=== PATIENT | female | born 1960 | race Caucasian/White ===

== ENCOUNTER → 2017-12-30 | Outpatient (REF) | payer OTHER | LOC: M SFHCLERA 12:21 | DX: R30.0 Dysuria (principal) | CPT/HCPCS: 87086 ==

== ENCOUNTER → 2018-10-29 | Outpatient (REF) | payer OTHER ==
[~2018-10-29] MED LIST: CITA20TA6 PO; CLON1TAB8 PO; CRES5TAB PO; LEXA1TAB2 PO; MOBI4TAB PO; MONT10TA2 PO; MOTR200T44 PO; TRIA37.5 PO; TYLE167L PO; VITA-122 PO; ZYRT10CA PO
[2018-10-29 19:22] LABS: APPEARANCE, URINE CLOUDY (CLEAR); BACTERIA, URINE AUTO 1+ (NEGATIVE); BILIRUBIN, URINE AUTO NEGATIVE (NEGATIVE); BLOOD, URINE BLOOD 3+ (NEGATIVE); COLOR, URINE YELLOW (YELLOW); GLUCOSE, URINE (UA) AUTO NEGATIVE (NEGATIVE); KETONE, URINE AUTO NEGATIVE (NEGATIVE); LEUKOCYTE ESTERASE, URINE AUTO 3+ (NEGATIVE); MUCUS, URINE SMALL (NEGATIVE); NITRITE, URINE AUTO NEGATIVE (NEGATIVE); PROTEIN, URINE AUTO NEGATIVE (NEGATIVE); RBC, URINE AUTO 61 /HPF (0-3); SPECIFIC GRAVITY URINE AUTO 1.014 (1.002-1.035); SQUAMOUS EPITHELIAL CELL UR AU 1 /HPF (0-6); UROBILINOGEN, URINE AUTO 0.2 mg/dL (0.0-2.0); WBC, URINE AUTO 176 /HPF (0-3)
== END ==
LOC: M LAB REF 18:05
PROVIDERS: ATTEND Physician Assistant Medical
DX: N39.0 Urinary tract infection, site not specified (principal)

== ENCOUNTER 2019-03-27 07:44 | Emergency (ER) | payer OTHER ==
[~2019-03-27] VITALS: Ht 160 cm; Wt 77.9 kg
[2019-03-27 07:44] VITALS: BP 122/66
[~2019-03-27 07:44] MED LIST changes: +ALL10TAB29; -MONT10TA2 PO; +MONT10TA4 PO
[2019-03-27] MEDS ORDERED: LEVO500T3 PO (07:51)
[2019-03-27] MEDS ORDERED: CLAR10CA3 PO (07:51)
[2019-03-27] MEDS ORDERED: IBUP-1022 PO (07:51)
[2019-03-27] MEDS ORDERED: ONDANSETRON 4 MG ORAL DISINTEGRATING TAB (Q0162 PER 1MG) PO ONE (08:15)
[2019-03-27] MEDS ORDERED: BACTRIM 160MG/800MG DS TAB PO ONE (08:15)
[2019-03-27] MEDS ORDERED: ONDA4TAB6 PO (08:18)
[2019-03-27] MEDS ORDERED: BACT800T5 PO (08:18)
[2019-03-27] MEDS ORDERED: NEOSPORIN TOP OINT 15GM TOP ONE (08:30)
== END 2019-03-27 08:27 | disposition home or self-care (01) ==
LOC: EEVIPCON 07:44 → M ED 07:44
DX: L03.011 Cellulitis of right finger (principal); M48.00 Spinal stenosis, site unspecified; M19.90 Unspecified osteoarthritis, unspecified site; Z79.2 Long term (current) use of antibiotics; Z79.899 Other long term (current) drug therapy; Z88.0 Allergy status to penicillin; Z88.6 Allergy status to analgesic agent; Z91.013 Allergy to seafood
CPT/HCPCS: 10060; 87070; 87077; 87186; 87205; 99282; Q0162

== ENCOUNTER → 2020-03-07 | Outpatient (CLI) | payer SELFPAY ==
[~2020-03-07] MED LIST changes: -ALL10TAB29; +BACT800T5 PO; +CETI-24; +CLAR10CA3 PO; +IBUP-1022 PO; +LEVO500T3 PO; +MONT10TA10 PO; -MONT10TA4 PO; +ONDA4TAB6 PO
== END ==
LOC: M LABSMTC 13:25
PROVIDERS: ATTEND Pediatrics
DX: Z20.822 Contact with and (suspected) exposure to COVID-19 (principal)

== ENCOUNTER → 2021-10-22 | Outpatient (CLI) | payer OTHER ==
[~2021-10-22] MED LIST changes: +LEVO1TAB39 PO; -LEVO500T3 PO; -MONT10TA10 PO; +MONT10TA97 PO
== END ==
LOC: M WHC 13:41
PROVIDERS: ATTEND Family Medicine
DX: Z12.31 Encounter for screening mammogram for malignant neoplasm of breast (principal)

== ENCOUNTER → 2022-06-09 | Outpatient (CLI) | payer OTHER | LOC: M RAD 07:54 | PROVIDERS: ATTEND Student in an Organized Health Care Education/Training Program | DX: Z12.2 Encounter for screening for malignant neoplasm of respiratory organs (principal); F17.200 Nicotine dependence, unspecified, uncomplicated ==

== ENCOUNTER → 2023-02-19 | Outpatient (CLI) | payer OTHER ==
[~2023-02-19] MED LIST changes: +METHACHOLINE KIT INH ONE
== END ==
LOC: M RAD 12:46
PROVIDERS: ATTEND Nurse Practitioner Family
DX: R06.02 Shortness of breath (principal)

== ENCOUNTER → 2023-12-09 | Outpatient (REF) | payer OTHER ==
[~2023-12-09] MED LIST changes: -METHACHOLINE KIT INH ONE; +ONDA-282 PO; -ONDA4TAB6 PO
== END ==
LOC: M SFHCDERM 07:48
PROVIDERS: ATTEND Physician Assistant
DX: L72.0 Epidermal cyst (principal)

== ENCOUNTER → 2024-03-21 | Outpatient (REF) | payer OTHER | LOC: M LAB REF 16:15 | PROVIDERS: ATTEND Physician Assistant Medical | DX: B34.9 Viral infection, unspecified (principal) ==

== ENCOUNTER → 2024-04-22 | Outpatient (CLI) | payer OTHER | LOC: M RAD 15:32 | PROVIDERS: ATTEND Internal Medicine | DX: Z12.2 Encounter for screening for malignant neoplasm of respiratory organs (principal); F17.200 Nicotine dependence, unspecified, uncomplicated; J45.909 Unspecified asthma, uncomplicated ==

== ENCOUNTER → 2024-09-01 | Outpatient (CLI) | payer OTHER ==
[~2024-09-01] MED LIST changes: -IBUP-1022 PO; +IBUP600T42 PO; +PROHANCE 279.3MG/ML 15ML VIAL As Ordered ONE; +PROHANCE 279.3MG/ML 5ML VIAL As Ordered ONE
== END ==
LOC: M RAD 10:36
PROVIDERS: ATTEND Internal Medicine
DX: K83.8 Other specified diseases of biliary tract (principal); K76.0 Fatty (change of) liver, not elsewhere classified; N28.1 Cyst of kidney, acquired
CPT/HCPCS: 74183; A9576

== ENCOUNTER → 2024-11-24 | Outpatient (CLI) | payer OTHER ==
[~2024-11-24] MED LIST changes: -PROHANCE 279.3MG/ML 15ML VIAL As Ordered ONE; -PROHANCE 279.3MG/ML 5ML VIAL As Ordered ONE
== END ==
LOC: M EKG 12:34
PROVIDERS: ATTEND Internal Medicine Cardiovascular Disease
DX: I49.40 Unspecified premature depolarization (principal)

== ENCOUNTER → 2024-11-29 | Outpatient (CLI) | payer OTHER | LOC: M PLAIMG 09:40 | PROVIDERS: ATTEND Internal Medicine Cardiovascular Disease | DX: R06.02 Shortness of breath (principal); R94.31 Abnormal electrocardiogram [ECG] [EKG]; G47.33 Obstructive sleep apnea (adult) (pediatric) ==